=== PATIENT | male | born 1960 | race Caucasian/White ===

== ENCOUNTER 2019-05-28 11:01 | Outpatient (CLI) | payer BC, SELFPAY ==
[2019-05-28 11:18] VITALS: BMI 27.1
--- NOTE | 2019-05-28 11:18 | ECG_ITS ---
NAME OF STUDY: EXERCISE SESTAMIBI STRESS TEST INDICATION: Chest Pain PROCEDURE: The baseline electrocardiogram showed normal sinus rhythm with normal ST-Ts. At the baseline, the patient's blood pressure was 128/88 mm Hg with a heart rate of 65. The patient exercised for 10 minutes and 18 seconds on a standard Charlie protocol. Patient attained a maximum heart rate of 167 beats per minute( 101 % of the maximum predicted heart rate) with a blood pressure at the peak exercise of 182/68 mm Hg. The EKG at the peak exercise revealed no significant changes. Patient did not have any chest pain or any significant arrhythmis with the exercise Sestamibi was injected 1 minute prior to the peak exercise During the recovery phase, there were no new changes. Blood pressure at the end of the recovery phase was 133/94 mm Hg with a heart rate of 105 per minute. CONCLUSION: 1. No significant EKG changes with the [treadmill exercise 2. No exercise-induced chest pain or cardiac arrhythmia 3. Good exercise tolerance, attained a maximum of 13.5 METs 4. Sestamibi/Sestamibi perfusion results pending; see separate report. Electronically Signed On 05-31-2019 6:47:15 CDT by Jose L Delcid M.D. [email or web address]
--- NOTE | 2019-05-28 11:19 | NMCV_ITS ---
NM trena perf SPECT r/s* [id number] Bogdan Bourne Age: 58 Gender: M : 1960 Exam Date: 05/28/2019 12:10 Ordering Phys: Pipo Badillo MD Technologist: NAHOMY Berry Exam Location: [facility] Indications: CHEST PAIN STRESS TEST Please see separate stress test report in [facility] for full findings IMAGE PROTOCOL Rest/Stress 1 Exercise Day Radiopharmaceutical Dose (mCi) Administration Site Administered by Rest: Tc-99m 10.8 IV NAHOMY Matthews Sestamibi Stress:Tc-99m 31.6 IV NAHOMY Berry Sestamirachelle Rest: 28-May-2019 60 Discovery 630 Stress: 28-May-2019 15 Discovery 630 Radiopharmaceutical was injected at 85 % maximum heart rate. Images obtained in supine and prone position. SPECT RESULTS Technical Quality: Excellent Raw Data Analysis: Normal Image Corrections: No attenuation or motion correction applied Summed Stress Score: 1 Summed Rest Score: 0 Summed Difference Score: 1 PERFUSION FINDINGS A small area of decreased tracer uptake was noted in the apical lateral region, with some reversibility FUNCTIONAL RESULTS (calculated via Gated SPECT) Stress Image LV EF (%): 77 Stress EDV (mL):74 TID: 0.82 Stress ESV (mL):17 FUNCTIONAL FINDINGS: Segmental wall motion is revealing no gross wall motion abnormalities IMPRESSIONS 1. Myocardial perfusion imaging revealing a small area of reversible defect in the apical lateral region, suggestive of ischemia in the distribution of the left circumflex artery. 2. LV ejection fraction estimated to be 77%. 3. LV wall motion analysis revealing, no gross wall motion normalities 4. Normal LV volume Dr Jose L Delcid MD FACC (Electronically Signed) Final Date: 28 May 2019 22:46 S
--- NOTE | 2019-05-28 13:45 | SUR.PREOP ---
Patient reports no pain or discomfort prior to the start of the procedure.
[2019-05-28 14:00] VITALS: BP 147/83; PULSE 99
== END 2019-05-28 11:02 | disposition home or self-care (01) ==
LOC: CDL 11:03
PROVIDERS: Family Provider Family Medicine; Visit Provider Family Medicine
DX: R07.9 Chest pain, unspecified (principal)
CPT/HCPCS: 78452; 93017; A9500

== ENCOUNTER → 2022-08-20 08:08 | Outpatient (BNVA) | payer OTHER, SELFPAY | PROVIDERS: Family Provider Family Medicine; PCP Family Medicine; Visit Provider Family Medicine | DX: Z00.00 Encounter for general adult medical examination without abnormal findings (principal) | CPT/HCPCS: 80053; 80061 ==

== ENCOUNTER → 2025-02-26 08:20 | Outpatient (BNVA) | payer OTHER, SELFPAY | PROVIDERS: Family Provider Family Medicine; PCP Family Medicine; Visit Provider Family Medicine | DX: E78.5 Hyperlipidemia, unspecified (principal) | CPT/HCPCS: 80053; 80061 ==